=== PATIENT | male | born 1970 | race Caucasian/White ===

== ENCOUNTER 2017-01-22 01:29 | Inpatient (IN) | payer MEDICAID ==
[~2017-01-22] VITALS: Ht 175.3 cm; Wt 82.4 kg
[2017-01-22 02:03] LABS: Basophils # (auto) 0.2 uL; Basophils % (auto) 1.1 % (0.0-2.0); CONDITION Y; Eosinophils # (auto) 0.7 uL; Eosinophils % (auto) 4.5 % (0.0-7.0); Hematocrit 52.9 % (41.0-53.0); Hemoglobin 17.8 g/dL (13.5-17.5); Lymphocytes # (auto) 4.3 uL; Lymphocytes % (auto) 29.2 % (10.0-50.0); Mean Corpuscular Hemoglobin 30.8 pg (28.0-32.0); Mean Corpuscular Hgb Conc. 33.7 g/dL (32.0-36.0); Mean Corpuscular Volume 91.5 fL (80.0-100.0); Mean Platelet Volume 7.6 fL (7.4-10.4); Monocytes # (auto) 0.6 uL; Monocytes % (auto) 4.1 % (0.0-12.0); Neutrophils # (auto) 8.9 uL; Neutrophils % (auto) 61.1 % (37.0-80.0); Platelet Count (auto) 300 10^3/uL (140-450); Red Cell Distribution Width 16.2 % (11.6-16.0); White Blood Cell 14.6 10^3/uL (4.4-10.8)
[2017-01-22 02:15] LABS: Urine Bilirubin Negative (Negative); Urine Blood Negative /uL (Negative); Urine Color Yellow (Yellow); Urine Glucose Normal (Normal); Urine Hyaline Cast FEW /lpf (0 - 2); Urine Ketone Negative (Negative); Urine Nitrite Negative (Negative); Urine RBC <1 /hpf (0 - 3); Urine Urobilinogen Normal (Negative)
[2017-01-22 02:42] LABS: BUN/Creatinine Ratio 14.5; Bilirubin, Total 0.4 mg/dL (0.2-1.0); Calcium 8.9 mg/dL (8.5-10.1); Potassium 4.2 mmol/L (3.5-5.1); Total Protein 7.4 g/dL (6.4-8.2)
[2017-01-22] MEDS ORDERED: SODIUM CHLORIDE 0.9% 1,000 ML IV ONE ×2 (08:09)
[2017-01-22] MEDS ORDERED: cefTRIAXone 1GM/50ML D5W 50 ML IV ONE (08:15)
[2017-01-22] MEDS ORDERED: MORPHINE SULFATE 4 MG/ML SYRG IV ONE (08:15)
[2017-01-22] MEDS ORDERED: metroNIDAZOLE 500MG/100ML 100 ML IV ONE (08:15)
[2017-01-22] MEDS ORDERED: ONDANSETRON HCL 4 MG/2 ML VIAL IV ONE ×2 (08:15→12:00)
[2017-01-22] MEDS ORDERED: IOHEXOL 300 MG/ML 100ML BOTTLE IJ ONE (08:36)
[2017-01-22] MEDS ORDERED: KETOROLAC TROMETH 30 MG/ML 1ML VIAL IV ONE (12:00)
[2017-01-22] MEDS ORDERED: ACETAMINOPHEN 325 MG TAB PO PRN (13:30)
[2017-01-22] MEDS ORDERED: NITROGLYCERIN 0.4 MG SL TAB SL PRN (13:30)
[2017-01-22] MEDS ORDERED: MORPHINE SULFATE 4 MG/ML SYRG IV PRN (13:30)
[2017-01-22] MEDS: metroNIDAZOLE 500MG/100ML 100 ML IV SCH ×2 (13:46→21:51)
[2017-01-22] MEDS: SODIUM CHLOR 0.9% PF (SALINE LOCK) 10ML VIAL IV SCH ×2 (13:58→21:51)
[2017-01-22] MEDS: MORPHINE SULFATE 4 MG/ML SYRG IV PRN ×2 (13:59→18:16)
[2017-01-22] MEDS: ONDANSETRON HCL 4 MG/2 ML VIAL IV PRN ×2 (14:00→21:52)
[2017-01-22] MEDS: FAMOTIDINE 20 MG TAB PO SCH ×2 (14:04→21:51)
[2017-01-22] MEDS: INDOMETHACIN 25 MG CAP PO SCH ×3 (14:06→21:54)
[2017-01-22 15:06] LABS: INR 1.02 (0.9-1.15); Prothrombin Time 11.1 sec (9.37-12.3)
[2017-01-22 20:00] VITALS: BP 160/87
[2017-01-22] MEDS: HYDROmorphone HCL 2 MG/ML VL IV PRN (21:52)
[2017-01-22] MEDS: HYDROcodone-ACET 5/325MG TAB PO PRN (22:55)
[2017-01-23] MEDS: HYDROmorphone HCL 2 MG/ML VL IV PRN ×5 (03:50→23:08)
[2017-01-23] MEDS: PROMETHAZINE HCL 25 MG/ML 1ML IV PRN ×4 (03:51→23:09)
[2017-01-23] MEDS: metroNIDAZOLE 500MG/100ML 100 ML IV SCH ×3 (05:55→22:04)
[2017-01-23] MEDS: SODIUM CHLOR 0.9% PF (SALINE LOCK) 10ML VIAL IV SCH ×3 (05:55→22:04)
[2017-01-23] MEDS: INDOMETHACIN 25 MG CAP PO SCH ×3 (05:55→22:00)
[2017-01-23 06:01] LABS: Basophils # (auto) 0 uL; Basophils % (auto) 0.2 % (0.0-2.0); CONDITION Y; Eosinophils # (auto) 0.2 uL; Eosinophils % (auto) 1.6 % (0.0-7.0); Hematocrit 48.3 % (41.0-53.0); Hemoglobin 16.6 g/dL (13.5-17.5); Lymphocytes # (auto) 1.8 uL; Lymphocytes % (auto) 17.3 % (10.0-50.0); Mean Corpuscular Hemoglobin 31.4 pg (28.0-32.0); Mean Corpuscular Hgb Conc. 34.4 g/dL (32.0-36.0); Mean Corpuscular Volume 91.2 fL (80.0-100.0); Mean Platelet Volume 7.3 fL (7.4-10.4); Monocytes # (auto) 0.5 uL; Monocytes % (auto) 4.8 % (0.0-12.0); Neutrophils # (auto) 7.7 uL; Neutrophils % (auto) 76.1 % (37.0-80.0); Platelet Count (auto) 277 10^3/uL (140-450); Red Cell Distribution Width 15.9 % (11.6-16.0); White Blood Cell 10.2 10^3/uL (4.4-10.8)
[2017-01-23 06:22] LABS: Albumin 3.4 g/dL (3.4-5.0); BUN/Creatinine Ratio 11.3; Bilirubin, Total 0.6 mg/dL (0.2-1.0); Calcium 8.4 mg/dL (8.5-10.1); Potassium 4.3 mmol/L (3.5-5.1); Total Protein 6.6 g/dL (6.4-8.2)
[2017-01-23 09:00] VITALS: BP 144/84
[2017-01-23] MEDS: MULTIPLE VITAMIN TAB PO SCH (09:21)
[2017-01-23] MEDS: cefTRIAXone 1GM/50ML D5W 50 ML IV SCH (09:21)
[2017-01-23] MEDS: FAMOTIDINE 20 MG TAB PO SCH ×2 (09:21→22:04)
[2017-01-23 13:00] VITALS: BP 151/82
[2017-01-23 16:48] VITALS: BP 150/83
[2017-01-23] MEDS ORDERED: PROMETHAZINE HCL 25 MG/ML 1ML IV PRN (19:45)
[2017-01-23 20:00] VITALS: BP 133/76
[2017-01-23] MEDS: HYDROcodone-ACET 5/325MG TAB PO PRN (20:46)
[2017-01-23 22:04] VITALS: BP 133/76
[2017-01-23] MEDS: DOCUSATE SOD 100 MG CAP PO PRN (22:05)
[2017-01-24] MEDS: TEMAZEPAM 15 MG CAP PO PRN (00:15)
[2017-01-24] MEDS: PROMETHAZINE HCL 25 MG/ML 1ML IV PRN ×5 (03:43→22:11)
[2017-01-24] MEDS: HYDROmorphone HCL 2 MG/ML VL IV PRN ×5 (03:43→22:11)
[2017-01-24 05:07] VITALS: BP 148/102
[2017-01-24] MEDS: INDOMETHACIN 25 MG CAP PO SCH ×3 (06:00→22:00)
[2017-01-24 06:06] LABS: Basophils # (auto) 0.1 uL; Basophils % (auto) 0.7 % (0.0-2.0); CONDITION Y; Eosinophils # (auto) 0.5 uL; Eosinophils % (auto) 4.8 % (0.0-7.0); Hematocrit 51.3 % (41.0-53.0); Hemoglobin 17.2 g/dL (13.5-17.5); Lymphocytes # (auto) 2.7 uL; Lymphocytes % (auto) 28.5 % (10.0-50.0); Mean Corpuscular Hemoglobin 30.8 pg (28.0-32.0); Mean Corpuscular Hgb Conc. 33.6 g/dL (32.0-36.0); Mean Corpuscular Volume 91.7 fL (80.0-100.0); Mean Platelet Volume 7.6 fL (7.4-10.4); Monocytes # (auto) 0.6 uL; Neutrophils # (auto) 5.8 uL; Platelet Count (auto) 272 10^3/uL (140-450); Red Cell Distribution Width 15.9 % (11.6-16.0); White Blood Cell 9.6 10^3/uL (4.4-10.8)
[2017-01-24] MEDS: metroNIDAZOLE 500MG/100ML 100 ML IV SCH ×3 (06:10→22:10)
[2017-01-24] MEDS: SODIUM CHLOR 0.9% PF (SALINE LOCK) 10ML VIAL IV SCH ×3 (06:10→22:10)
[2017-01-24 06:46] LABS: Potassium 4.5 mmol/L (3.5-5.1)
[2017-01-24 06:49] LABS: Albumin 3.8 g/dL (3.4-5.0); BUN/Creatinine Ratio 10.7; Calcium 8.9 mg/dL (8.5-10.1)
[2017-01-24 06:53] LABS: Bilirubin, Total 0.8 mg/dL (0.2-1.0); Total Protein 7.4 g/dL (6.4-8.2)
[2017-01-24 09:00] VITALS: BP 143/92
[2017-01-24] MEDS: MULTIPLE VITAMIN TAB PO SCH (09:20)
[2017-01-24] MEDS: cefTRIAXone 1GM/50ML D5W 50 ML IV SCH (09:20)
[2017-01-24] MEDS: FAMOTIDINE 20 MG TAB PO SCH ×2 (09:21→22:11)
[2017-01-24] MEDS: DOCUSATE SOD 100 MG CAP PO PRN ×2 (09:24→22:12)
[2017-01-24] MEDS ORDERED: EZ PAQUE SUSP 12OZ BTL ONE (09:45)
[2017-01-24] MEDS ORDERED: GASTROGRAFIN 120 ML SOL ONE (09:58)
[2017-01-24 15:10] VITALS: BP 109/67
[2017-01-24 18:00] VITALS: BP 151/98
[2017-01-24 20:00] VITALS: BP 151/98
[2017-01-24] MEDS: HYDROcodone-ACET 5/325MG TAB PO PRN (20:13)
[2017-01-24 22:00] VITALS: BP 151/98
[2017-01-25] MEDS: HYDROmorphone HCL 2 MG/ML VL IV PRN ×5 (03:22→22:02)
[2017-01-25] MEDS: PROMETHAZINE HCL 25 MG/ML 1ML IV PRN ×5 (03:23→22:02)
[2017-01-25 05:00] VITALS: BP 154/92
[2017-01-25] MEDS: metroNIDAZOLE 500MG/100ML 100 ML IV SCH ×3 (05:55→22:02)
[2017-01-25] MEDS: SODIUM CHLOR 0.9% PF (SALINE LOCK) 10ML VIAL IV SCH ×3 (05:55→22:02)
[2017-01-25] MEDS: INDOMETHACIN 25 MG CAP PO SCH ×3 (05:55→22:03)
[2017-01-25 06:04] LABS: Basophils # (auto) 0.1 uL; Basophils % (auto) 0.4 % (0.0-2.0); CONDITION Y; DEFINITIVE SEE PRINTOUT; Eosinophils # (auto) 0.4 uL; Eosinophils % (auto) 3.1 % (0.0-7.0); Hemoglobin 18.9 g/dL (13.5-17.5); Lymphocytes # (auto) 2.6 uL; Lymphocytes % (auto) 22.1 % (10.0-50.0); Mean Corpuscular Hemoglobin 30.7 pg (28.0-32.0); Mean Corpuscular Hgb Conc. 33.5 g/dL (32.0-36.0); Mean Corpuscular Volume 91.6 fL (80.0-100.0); Mean Platelet Volume 7.7 fL (7.4-10.4); Monocytes # (auto) 0.6 uL; Monocytes % (auto) 5.5 % (0.0-12.0); Neutrophils % (auto) 68.9 % (37.0-80.0); Platelet Count (auto) 290 10^3/uL (140-450); Red Cell Distribution Width 16.3 % (11.6-16.0); White Blood Cell 11.7 10^3/uL (4.4-10.8)
[2017-01-25 06:10] LABS: Hematocrit 56.4 % (41.0-53.0)
[2017-01-25 06:20] LABS: BUN/Creatinine Ratio 13.2; Bilirubin, Total 0.9 mg/dL (0.2-1.0); Calcium 9.1 mg/dL (8.5-10.1); Total Protein 7.9 g/dL (6.4-8.2)
[2017-01-25 08:41] LABS: Potassium 4.4 mmol/L (3.5-5.1)
[2017-01-25] MEDS: MULTIPLE VITAMIN TAB PO SCH (08:57)
[2017-01-25] MEDS: cefTRIAXone 1GM/50ML D5W 50 ML IV SCH (08:57)
[2017-01-25] MEDS: FAMOTIDINE 20 MG TAB PO SCH ×2 (08:57→22:02)
[2017-01-25 09:00] VITALS: BP 150/103
[2017-01-25 13:00] VITALS: BP 140/93
[2017-01-25 17:00] VITALS: BP 138/88
[2017-01-25 22:00] VITALS: BP 138/98
[2017-01-25] MEDS: DOCUSATE SOD 100 MG CAP PO PRN (22:02)
[2017-01-25] MEDS: TEMAZEPAM 15 MG CAP PO PRN (22:02)
[2017-01-26] MEDS: HYDROmorphone HCL 2 MG/ML VL IV PRN ×2 (02:57→09:17)
[2017-01-26] MEDS: PROMETHAZINE HCL 25 MG/ML 1ML IV PRN ×2 (02:57→09:16)
[2017-01-26 05:00] VITALS: BP 143/86
[2017-01-26] MEDS: SODIUM CHLOR 0.9% PF (SALINE LOCK) 10ML VIAL IV SCH (05:54)
[2017-01-26] MEDS: metroNIDAZOLE 500MG/100ML 100 ML IV SCH (05:54)
[2017-01-26] MEDS: INDOMETHACIN 25 MG CAP PO SCH (05:55)
[2017-01-26 06:46] LABS: Basophils # (auto) 0 uL; Basophils % (auto) 0.4 % (0.0-2.0); CONDITION Y; Eosinophils # (auto) 0.5 uL; Eosinophils % (auto) 4.4 % (0.0-7.0); Hemoglobin 18.1 g/dL (13.5-17.5); Lymphocytes # (auto) 2.7 uL; Lymphocytes % (auto) 23.3 % (10.0-50.0); Mean Corpuscular Hemoglobin 30.8 pg (28.0-32.0); Mean Corpuscular Hgb Conc. 33.5 g/dL (32.0-36.0); Mean Platelet Volume 7.5 fL (7.4-10.4); Monocytes # (auto) 0.8 uL; Monocytes % (auto) 7.1 % (0.0-12.0); Neutrophils # (auto) 7.6 uL; Neutrophils % (auto) 64.8 % (37.0-80.0); Platelet Count (auto) 293 10^3/uL (140-450); Red Cell Distribution Width 15.9 % (11.6-16.0); White Blood Cell 11.7 10^3/uL (4.4-10.8)
[2017-01-26 07:16] LABS: Albumin 3.6 g/dL (3.4-5.0); BUN/Creatinine Ratio 13.5; Bilirubin, Total 0.7 mg/dL (0.2-1.0); Calcium 8.8 mg/dL (8.5-10.1); Potassium 3.7 mmol/L (3.5-5.1); Total Protein 7.1 g/dL (6.4-8.2)
[2017-01-26 09:00] VITALS: BP 183/105
[2017-01-26] MEDS: cefTRIAXone 1GM/50ML D5W 50 ML IV SCH (09:16)
[2017-01-26] MEDS: MULTIPLE VITAMIN TAB PO SCH (09:16)
[2017-01-26] MEDS: FAMOTIDINE 20 MG TAB PO SCH (09:16)
[2017-01-26 11:53] VITALS: BP 158/103
[2017-01-26 13:00] VITALS: BP 131/75
== END 2017-01-26 12:27 | disposition home or self-care (01) | DRG 282 ==
LOC: ER 01:29 → TELE 01:30 → TELE-WESTW 17:51
PROVIDERS: ADMIT Internal Medicine; ATTEND Internal Medicine
DX: K85.90 Acute pancreatitis without necrosis or infection, unspecified (principal); K56.69 Other intestinal obstruction; E11.22 Type 2 diabetes mellitus with diabetic chronic kidney disease; N39.0 Urinary tract infection, site not specified; Z93.4 Other artificial openings of gastrointestinal tract status; N18.3 Chronic kidney disease, stage 3 (moderate); K21.9 Gastro-esophageal reflux disease without esophagitis; Z82.49 Family history of ischemic heart disease and other diseases of the circulatory system; Z88.8 Allergy status to other drugs, medicaments and biological substances; R31.9 Hematuria, unspecified
CPT/HCPCS: 36415; 71020; 74177; 74250; 80053; 81001; 82150; 83605; 83690; 85025; 85610; 87040; 87081; 87086; 96365; 96366; 96368; 96375; J0696; J1885; J2405; J3490

== ENCOUNTER 2018-11-12 00:57 | Inpatient (IN) | payer MEDICAID | END 2018-11-14 12:00 | disposition home or self-care (01) | LOC: ER 00:57 → CENTRAL 11-13 16:23 → TELE 12:27 → TELE-CENTR 22:05 | DX: A41.9 Sepsis, unspecified organism (principal); E11.21 Type 2 diabetes mellitus with diabetic nephropathy; N18.3 Chronic kidney disease, stage 3 (moderate); E11.22 Type 2 diabetes mellitus with diabetic chronic kidney disease; I10 Essential (primary) hypertension; K52.9 Noninfective gastroenteritis and colitis, unspecified; I12.9 Hypertensive chronic kidney disease with stage 1 through stage 4 chronic kidney disease, or unspecified chronic kidney disease; F12.90 Cannabis use, unspecified, uncomplicated; J44.9 Chronic obstructive pulmonary disease, unspecified; K59.01 Slow transit constipation ==